=== PATIENT | male | born 1960 | race Caucasian/White ===

== ENCOUNTER 2018-10-31 07:06 | Day surgery (SDC) | payer MEDICAID ==
[2018-10-17 14:51] LABS: BASOPHILS # (AUTO) 0.1 X10'3 (0-0.2); BASOPHILS % (AUTO) 1.1 % (0-1); EOSINOPHILS # (AUTO) 0.1 X10'3 (0-0.9); EOSINOPHILS % (AUTO) 1.4 % (0-6); LYMPHOCYTES # (AUTO) 2.4 X10'3 (1.1-4.8); LYMPHOCYTES % (AUTO) 32.5 % (21-51); MEAN CORPUSCULAR HEMOGLOBIN 30.7 PG (27.0-31.0); MEAN CORPUSCULAR HGB CONC 32.8 % (33.0-36.5); MEAN CORPUSCULAR VOLUME 93.7 FL (78-98); MEAN PLATELET VOLUME 7.9 FL (7.4-10.4); MONOCYTES # (AUTO) 0.5 X10'3 (0-0.9); MONOCYTES % (AUTO) 7.1 % (2-12); NEUTROPHILS # (AUTO) 4.3 X10'3 (1.8-7.7); NEUTROPHILS % (AUTO) 57.9 % (42-75); PRE OP HEMATOCRIT 45.1 % (42.0-52.0); PRE OP HEMOGLOBIN 14.8 g/dL (14.0-17.9); PRE OP PLATELET COUNT 251 X10'3 (140-440); RED BLOOD COUNT 4.81 X10'6 (4.70-6.10); RED CELL DISTRIBUTION WIDTH 15.2 % (11.5-14.5)
[2018-10-17 15:20] LABS: ALBUMIN 3.7 G/DL (3.4-5.0); ALBUMIN/GLOBULIN RATIO 0.9 (1.1-1.5); ALKALINE PHOSPHATASE 123 IU/L (46-116); BLOOD UREA NITROGEN 10 MG/DL (7-18); BUN/CREATININE RATIO 9.8 (5.4-32.0); CALCIUM 8.6 MG/DL (8.5-10.1); CHLORIDE 104 MMOL/L (99-107); CREATININE 1.02 MG/DL (0.60-1.10); PRE OP ALT 15 U/L (30-65); PRE OP ANION GAP 10 (8-16); PRE OP AST 19 U/L (10-37); PRE OP BILIRUB, TOTAL 0.3 MG/DL (0.0-1.0); PRE OP GLUCOSE 130 MG/DL (70-104); PRE OP POTASSIUM 3.9 MMOL/L (3.4-5.1); PRE OP SODIUM 141 MMOL/L (135-145); TOTAL PROTEIN 7.6 G/DL (6.4-8.2); eGFR 75 ML/MIN
[~2018-10-31] VITALS: Ht 172.7 cm; Wt 88.1 kg
[~2018-10-31 07:06] MED LIST: AMLO5TAB PO; BACL20TA PO; CARB1TAB35 PO; CYCL-1 PO; GABA-532 PO; NITR0.4T SL; cefazolin/dext.iso 2gm/50ml 50 ML IV ONE; famotidine 20mg tablet PO ONE; ringers solution, lacted 1,000 ML IV SCH
[2018-10-31] MEDS ORDERED: BUPIVAcaine/PF 2.5mg/ml (0.25%) 10ml vial ONE (08:02)
[2018-10-31] MEDS ORDERED: triamcinolone acetonide 40mg/ml inj ONE (08:27)
[2018-10-31] MEDS ORDERED: fentaNYL/PF 50MCG/1 ML 2ML syringe ONE (08:29)
[2018-10-31] MEDS ORDERED: midazolam 2 mg/2 ml injection ONE ×2 (08:29→08:51)
[2018-10-31] MEDS ORDERED: LIDOcaine 0.5% (5mg/ml) 50ml vial ONE (08:30)
[2018-10-31] MEDS ORDERED: labetalol 5mg/ml 20ml inj. IV ONE (09:01)
[2018-10-31 09:08] VITALS: BP 143/82
--- NOTE | 2018-10-31 09:08 | NUR ---
Received from OR via [facility] , accompanied by Anesthesiologist LAUREN and report given by Anesthesiolgist. PATIENT WITH 20G PIV IN RIGHT UE RUNNING LR AT 100. LEFT WRIST DRESSING IS CDI. SHERMAN. + SENSATION AND CSM, VSS. Addendum: 10/31/18 at 0917 by Bhavin Rios RN, RN Amended: Links added.
[2018-10-31] MEDS ORDERED: ringers solution, lacted 1,000 ML IV SCH (09:11)
[2018-10-31] MEDS ORDERED: meperidine/PF 25mg/ml syringe IV PRN ×3 (09:15)
[2018-10-31] MEDS ORDERED: proCHLORperazine 10 MG/2 ml inj IV PRN (09:15)
[2018-10-31] MEDS ORDERED: ondansetron/PF 4mg/2ml inj IV PRN (09:15)
[2018-10-31] MEDS ORDERED: morphine 4 MG/ML inj SYRINge IV PRN ×2 (09:15)
[2018-10-31 09:18] VITALS: BP 128/78
--- NOTE | 2018-10-31 09:28 | NUR ---
ALL DC CRITERIA HAS BEEN MET. IV TAKEN OUT WITHOUT COMPLICATIONS. ALL INSTRUCTIONS COVERED AND ALL QUESTIONS ANSWERED. DRESSINGS CDI. OUT VIA WHEELCHAIR TO [facility] WHERE PATIENT WAS SECURED IN AND DRIVEN HOME . Addendum: 10/31/18 at 0929 by Bhavin Rios RN, RN Amended: Links added.
--- NOTE | 2018-10-31 10:10 | NUR ---
ADDENDUM NOTE, UPON GETTING DRESSED PATIENT HAD A CONTROLLED DESCENT WITH ASSIST TO THE GROUND WHERE THERE WERE NO INJURIES, OBSERVED THIS AND THIS EVENT WAS REPORTED TO MD PANDEY. VSS WITH 175/90 66 BPM, DENIES ANY PAIN OR DISCOMFORT. BLOOD GLUCOSE OF 116. AWARE AND OKAY WITH DC AFTER ANOTHER 15 MINS WITH VSS. Addendum: 10/31/18 at 1014 by Bhavin Rios RN, RN Amended: Links added.
[2018-10-31 10:15] VITALS: BP 146/95
[2018-10-31 10:18] VITALS: BP 146/95
== END 2018-10-31 09:28 | disposition home or self-care (01) ==
LOC: PAS 07:06
PROVIDERS: ATTEND Orthopaedic Surgery Hand Surgery
DX: G56.02 Carpal tunnel syndrome, left upper limb (principal); M77.12 Lateral epicondylitis, left elbow; I10 Essential (primary) hypertension; G20 Parkinson's disease; J44.9 Chronic obstructive pulmonary disease, unspecified; M19.90 Unspecified osteoarthritis, unspecified site; H54.62 Unqualified visual loss, left eye, normal vision right eye; Z86.69 Personal history of other diseases of the nervous system and sense organs; Z86.73 Personal history of transient ischemic attack (TIA), and cerebral infarction without residual deficits; Z86.74 Personal history of sudden cardiac arrest; Z87.11 Personal history of peptic ulcer disease; Z79.891 Long term (current) use of opiate analgesic; Z87.891 Personal history of nicotine dependence; Z72.89 Other problems related to lifestyle; Z96.662 Presence of left artificial ankle joint; Z98.41 Cataract extraction status, right eye; Z98.42 Cataract extraction status, left eye; Z91.048 Other nonmedicinal substance allergy status; Z88.8 Allergy status to other drugs, medicaments and biological substances; Z79.899 Other long term (current) drug therapy; Z98.890 Other specified postprocedural states
CPT/HCPCS: 20605; 29848; 36415; 80053; 82948; 85025; 93005; A6449; J0690; J2001; J2250; J3010; J3301; J3490; A7000; J7120

== ENCOUNTER 2019-01-30 05:49 | Day surgery (SDC) | payer MEDICAID ==
[2019-01-29 10:44] LABS: BASOPHILS # (AUTO) 0.1 X10'3 (0-0.2); EOSINOPHILS # (AUTO) 0.1 X10'3 (0-0.9); EOSINOPHILS % (AUTO) 1.7 % (0-6); LYMPHOCYTES # (AUTO) 2.8 X10'3 (1.1-4.8); LYMPHOCYTES % (AUTO) 37.1 % (21-51); MEAN CORPUSCULAR HEMOGLOBIN 30.6 PG (27.0-31.0); MEAN CORPUSCULAR HGB CONC 32.7 g/dL (33.0-36.5); MEAN CORPUSCULAR VOLUME 93.6 FL (78-98); MEAN PLATELET VOLUME 7.5 FL (7.4-10.4); MONOCYTES # (AUTO) 0.6 X10'3 (0-0.9); MONOCYTES % (AUTO) 8.1 % (2-12); NEUTROPHILS # (AUTO) 3.9 X10'3 (1.8-7.7); NEUTROPHILS % (AUTO) 52.1 % (42-75); PRE OP HEMATOCRIT 47.2 % (42.0-52.0); PRE OP HEMOGLOBIN 15.4 g/dL (14.0-17.9); PRE OP PLATELET COUNT 261 X10'3 (140-440); RED BLOOD COUNT 5.04 X10'6 (4.70-6.10); RED CELL DISTRIBUTION WIDTH 15.1 % (11.5-14.5)
[2019-01-29 11:39] LABS: ALBUMIN 3.8 G/DL (3.4-5.0); ALKALINE PHOSPHATASE 121 IU/L (46-116); BLOOD UREA NITROGEN 11 MG/DL (7-18); BUN/CREATININE RATIO 12.6 (5.4-32.0); CALCIUM 9.2 MG/DL (8.5-10.1); CHLORIDE 104 MMOL/L (99-107); CREATININE 0.87 MG/DL (0.60-1.10); PRE OP ALT 17 U/L (30-65); PRE OP ANION GAP 8 (8-16); PRE OP AST 15 U/L (10-37); PRE OP BILIRUB, TOTAL 0.4 MG/DL (0.0-1.0); PRE OP GLUCOSE 127 MG/DL (70-104); PRE OP POTASSIUM 3.9 MMOL/L (3.4-5.1); PRE OP SODIUM 139 MMOL/L (135-145); TOTAL CARBON DIOXIDE 27.3 MMOL/L (24-32); TOTAL PROTEIN 7.7 G/DL (6.4-8.2); eGFR 90 ML/MIN
--- NOTE | 2019-01-29 13:49 | NUR ---
PT HAS SCABBED AREA FROM BEING CUT BY BAMBOO AT SURGICAL SITE. DR NAM NOTIFIED. HE STATED " I THINK IT WILL BE OKAY"
[~2019-01-30] VITALS: Ht 172.7 cm; Wt 89.4 kg
[~2019-01-30 05:49] MED LIST changes: +cefazolin/dext.iso 2gm/100 ML IV ONE; -cefazolin/dext.iso 2gm/50ml 50 ML IV ONE
[2019-01-30] MEDS ORDERED: LIDOcaine 1% (10mg/ml) 2ml vial ONE (06:12)
[2019-01-30] MEDS ORDERED: BUPIVAcaine/PF 2.5mg/ml (0.25%) 10ml vial ONE (06:47)
[2019-01-30 06:54] VITALS: BP 134/81
[2019-01-30 06:56] VITALS: BP 134/81
[2019-01-30] MEDS ORDERED: LIDOcaine 0.5% (5mg/ml) 50ml vial ONE (07:13)
[2019-01-30] MEDS ORDERED: ringers solution, lacted 1,000 ML IV SCH (07:44)
[2019-01-30] MEDS ORDERED: hydrALAZINE 20mg/ml inj. IV PRN (07:45)
[2019-01-30] MEDS ORDERED: morphine 4 MG/ML inj SYRINge IV PRN ×2 (07:45)
[2019-01-30] MEDS ORDERED: fentaNYL/PF 50MCG/1 ML 2ML syringe IV PRN ×2 (07:45)
[2019-01-30] MEDS ORDERED: labetalol 20mg/4ml (5mg/ml) syringe IV PRN (07:45)
[2019-01-30] MEDS ORDERED: ondansetron/PF 4mg/2ml inj IV PRN (07:45)
[2019-01-30] MEDS ORDERED: MIDAZolam 5mg/5ml vial ONE (07:53)
[2019-01-30] MEDS ORDERED: fentaNYL/PF 50MCG/1 ML 2ML syringe ONE (07:53)
[2019-01-30 08:17] VITALS: BP 140/90
--- NOTE | 2019-01-30 08:17 | NUR ---
Received from OR via [facility] , accompanied by Anesthesiologist JULIA and report given by Anesthesiolgist. VSS. 20G PIV IN LEFT UE. RIGHT WRIST DRESSING IS CDI. ALERT AND ORIENTED. DENIES PAIN . Addendum: 01/30/19 at 0844 by Bhavin Rios RN, RN Amended: Links added.
[2019-01-30 08:27] VITALS: BP 127/75
[2019-01-30 08:37] VITALS: BP 122/46
--- NOTE | 2019-01-30 08:47 | NUR ---
PATIENT A&OX4, DENIES PAIN, V/S WNL, NEUROVASCULAR CHECKS INTACT, 20G PIV LUE D/C, SCD OFF, DRESSING TO RIGHT WRIST CDI ELEVATED WITH ICEBAG APPLIED. I HAVE REVIEWED D/C INSTRUCTIONS WITH PATIENT AND FAMILY AND THEY HAVE VERBALIZED UNDERSTANDING. PATIENT D/C HOME WITH ALL BELONGINGS AND FAMILY GAVE TRANSPORT HOME. 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 Addendum: 01/30/19 at 0908 by Bhavin Rios RN, RN Amended: Links added.
== END 2019-01-30 08:47 | disposition home or self-care (01) ==
LOC: PAS 05:49
PROVIDERS: ATTEND Orthopaedic Surgery Hand Surgery
DX: G56.01 Carpal tunnel syndrome, right upper limb (principal); G20 Parkinson's disease; M19.90 Unspecified osteoarthritis, unspecified site; K22.70 Barrett's esophagus without dysplasia; F41.9 Anxiety disorder, unspecified; Z79.899 Other long term (current) drug therapy; Z98.890 Other specified postprocedural states; Z87.891 Personal history of nicotine dependence; Z72.89 Other problems related to lifestyle; Z91.048 Other nonmedicinal substance allergy status; K21.9 Gastro-esophageal reflux disease without esophagitis
CPT/HCPCS: 29848; 36415; 80053; 82948; 85025; A6449; J0690; J2001; J2250; J3010; J3490; A7000; J7120

== ENCOUNTER 2019-05-13 08:17 | Emergency (ER) | payer MEDICAID ==
[~2019-05-13] VITALS: Ht 172.7 cm; Wt 87.0 kg
[~2019-05-13 08:17] MED LIST changes: -cefazolin/dext.iso 2gm/100 ML IV ONE; -famotidine 20mg tablet PO ONE; -ringers solution, lacted 1,000 ML IV SCH
[2019-05-13 08:28] VITALS: BP 159/104
[2019-05-13] MEDS ORDERED: DICL50TA8 PO (08:52)
[2019-05-13] MEDS ORDERED: ketorolac trometh inj. 60 MG/2 ML VIAL IM ONE (08:55)
--- NOTE | 2019-05-13 08:55 | NUR ---
Pt notes cold sweats beginning last night. Light meals yesterday, with nausea starting suddenly this morning prior to vomiting.
== END 2019-05-13 09:10 | disposition home or self-care (01) ==
LOC: ER 08:18
DX: M25.561 Pain in right knee (principal); E78.00 Pure hypercholesterolemia, unspecified; I10 Essential (primary) hypertension; G89.29 Other chronic pain; Z59.0 Homelessness; Z56.0 Unemployment, unspecified; Z79.899 Other long term (current) drug therapy
CPT/HCPCS: 96372; 99283; J1885

== ENCOUNTER 2019-09-04 09:31 | Outpatient (CLI) | payer MEDICAID ==
[~2019-09-04 09:31] MED LIST changes: +DICL50TA8 PO; +LIDOcaine 1% W/epiNEPHrine 1:100,000 20ml vial ONE; +barium sulfate 450ml oral suspension ONE
== END 2019-09-04 23:59 | disposition home or self-care (01) ==
LOC: RAD 09:31
PROVIDERS: ATTEND Otolaryngology
DX: K44.9 Diaphragmatic hernia without obstruction or gangrene (principal); K21.9 Gastro-esophageal reflux disease without esophagitis; I10 Essential (primary) hypertension; J44.9 Chronic obstructive pulmonary disease, unspecified; Z87.891 Personal history of nicotine dependence
CPT/HCPCS: 74220

== ENCOUNTER 2023-10-01 19:11 | Emergency (ER) | payer MEDICAID ==
[~2023-10-01] VITALS: Ht 172.7 cm; Wt 86.0 kg
[~2023-10-01 19:11] MED LIST changes: -LIDOcaine 1% W/epiNEPHrine 1:100,000 20ml vial ONE; -barium sulfate 450ml oral suspension ONE
[2023-10-01 19:13] VITALS: RESP 16; TEMP 98
[2023-10-01 22:52] VITALS: BP 187/80; PULSE 68; O2SAT 100
== END 2023-10-01 22:54 | disposition home or self-care (01) ==
LOC: ER 19:11
DX: M25.531 Pain in right wrist (principal); W19.XXXA Unspecified fall, initial encounter; Y93.89 Activity, other specified; Y92.89 Other specified places as the place of occurrence of the external cause; Y99.8 Other external cause status
CPT/HCPCS: 70450; 72125; 73110; 73130; 99284

== ENCOUNTER 2025-06-11 12:19 | Outpatient (CLI) | payer MEDICAID ==
--- NOTE | 2025-06-11 17:21 | VASCULAR REPORT ---
BILATERAL LOWER EXTREMITY VENOUS DUPLEX REASON FOR EXAMINATION: Bilateral lower extremity pain and swelling. Varicose veins in the left calf. COMPARISON: None DEEP VENOUS THROMBOSIS EXAMINATION: TECHNIQUE: Using real-time freeze-frame technique with the 6 MHz small parts transducer, multiple lo ngitudinal and transverse sections were obtained. Simultaneous color flow Doppler imaging was perfor med. FINDINGS: There is good visualization of the deep venous system with no intraluminal filling defects identified. Normal venous compressibility is seen above the calf and there is flow augmentation. Color flow Doppler imaging is unremarkable. INSUFFICIENCY EXAMINATION: TECHNIQUE: Duplex evaluation of the bilateral lower extremity superficial venous system was performed. The patie nt was examined in a standing position. Provocative maneuvers for reflux (retrograde venous flow) inc luding Valsalva maneuver and, when indicated, distal manual compression. FINDINGS: RIGHT DEEP SYSTEM: Common Femoral Vein: no significant reflux Femoral Vein: no significant reflux Popliteal Vein: no significant reflux RIGHT SUPERFICIAL SYSTEM: The right greater saphenous vein is not seen. There is nonocclusive wall adherent thrombus in the right small saphenous vein. LEFT DEEP SYSTEM: Common Femoral Vein: no significant reflux Femoral Vein: no significant reflux Popliteal Vein: no significant reflux LEFT SUPERFICIAL SYSTEM: Saphenofemoral Junction: the proximal GSV diameter measures 4.3 mm Greater Saphenous Vein at the: Upper Thigh: no significant reflux Lower Thigh: no significant reflux Small Saphenous Vein: There is nonocclusive wall adherent thrombus in the small saphenous vein. IMPRESSION: No evidence of deep venous thrombus in either lower extremity. Chronic nonocclusive thrombus is identified in bilateral small saphenous veins. The right greater saphenous vein is not seen and may be absent.
== END 2025-06-11 23:59 | disposition home or self-care (01) ==
LOC: VAS 12:19
PROVIDERS: ATTEND Physician Assistant
DX: I82.813 Embolism and thrombosis of superficial veins of lower extremities, bilateral (principal); I83.892 Varicose veins of left lower extremity with other complications
CPT/HCPCS: 93970